=== PATIENT | female | born 1965 | race Caucasian/White ===

== ENCOUNTER 2016-12-13 06:50 | Day surgery (SDC) | payer OTHER, BC ==
[~2016-12-13] VITALS: Ht 170.2 cm; Wt 111.1 kg
[~2016-12-13 06:50] MED LIST: AMBIEN5 MG PO; AMITRIPTYLINE H25 MG PO; AMITRIPTYLINE H75 MG PO; BUSPAR15 MG PO; CYMBALTA60 MG PO; ELAVIL50 MG PO; FENOFIBRATE130 MG PO; FIBER GUMMIES1 EACH PO; GABAPENTIN800 MG PO; HUMALOG100 UNIT/1 SC; HUMALOG100 UNIT/2 SC; JANUMET 50/11 TABLET PO; KEFLEX500 MG PO; LANTUS 3 M100 UNITS1 SC; LO-DOSE ASPIRIN81 M1 PO; METFORMIN HCL1000 MG PO; MULTI VITAMIN1 EACH PO; NEURONTIN800 MG PO; ONE DAILY FOR1 EAC2 PO; PRILOSEC OTC20 MG PO; PROVENTIL HFA6.7 GM IH; ROBAXIN750 MG PO; ROPINIROLE HC0.25 MG PO; UNISOM50 MG PO; VENLAFAXINE HC150 M1 PO
[2016-12-13] MEDS ORDERED: VICTOZA 2-0.6 MG/0.1 SC (07:53)
[2016-12-13 08:01] VITALS: BP 133/73
[2016-12-13 08:09] LABS: POINT-OF-CARE METER ID UU14174212
[2016-12-13 13:10] LABS: POINT-OF-CARE METER ID UU13113675; POINT-OF-CARE USER ID 515036437
[2016-12-13 14:41] VITALS: BP 128/61
[2016-12-13] MEDS ORDERED: IBUPROFEN800 MG PO (15:10)
[2016-12-13] MEDS ORDERED: PERCOCET 5/31 TABLET PO (15:10)
[2016-12-13 15:29] VITALS: BP 118/61
[2016-12-13 16:57] VITALS: BP 127/61
== END 2016-12-13 17:21 | disposition home or self-care (01) ==
LOC: SDC 06:50
PROVIDERS: Obstetrics & Gynecology
DX: R10.2 Pelvic and perineal pain (principal); N83.201 Unspecified ovarian cyst, right side; N72 Inflammatory disease of cervix uteri; D25.9 Leiomyoma of uterus, unspecified; J45.909 Unspecified asthma, uncomplicated; E11.9 Type 2 diabetes mellitus without complications; J44.9 Chronic obstructive pulmonary disease, unspecified; Z88.0 Allergy status to penicillin
CPT/HCPCS: 82948; 94640; 94640 76; J0330; J1100; J1170; J1580; J1815; J2250; J2310; J2405; J2710; J2765; J3010; J7050; S0030